=== PATIENT | female | born 1960 | race Caucasian/White ===

== ENCOUNTER 2022-01-02 01:00 | Outpatient (CLI) | payer BC, SELFPAY | END 2022-01-02 21:25 | disposition home or self-care (01) | LOC: RAD 01-21 21:25 | PROVIDERS: Visit Provider Nurse Practitioner Family | DX: E03.9 Hypothyroidism, unspecified (principal); R53.83 Other fatigue | CPT/HCPCS: 80053; 80061; 82306; 82607; 83735; 84439; 84443; 84481; 85025; 86376 ==

== ENCOUNTER 2022-02-27 10:44 | Outpatient (CLI) | payer BC, SELFPAY ==
--- NOTE | 2022-02-27 | US_ITS ---
WS: [id number] THYROID ULTRASOUND HISTORY: hypothyroidism COMPARISON: None available. Right lobe: 2.0 cm x 2.7 cm x 5.5 cm (w x ap x l). Volume: 15.5 cm3. Enlarged very heterogeneous thyroid. Increased vascularity. No discrete well-formed nodules. Lobulate d contour of the thyroid. Left lobe: 1.6 cm x 2.0 cm x 4.7 cm (w x ap x l). Volume: 8.0 cm3. Enlarged lobular heterogeneous thyroid. There are a few ill-defined nodules throughout. Only minimal hyperemia throughout the gland. Isthmus: 0.8 cm. Benign-appearing cervical chain lymph nodes. US/US thyroid [id number] IMPRESSION: Enlarged heterogeneous nodular thyroid with increased vascularity. Consistent w ith a thyroiditis.
== END 2022-02-27 10:45 | disposition home or self-care (01) ==
PROVIDERS: PCP Family Medicine; Visit Provider Nurse Practitioner Family
DX: E03.9 Hypothyroidism, unspecified (principal); E04.2 Nontoxic multinodular goiter
CPT/HCPCS: 76536

== ENCOUNTER → 2022-05-01 08:02 | Outpatient (BNVA) | payer BC, SELFPAY | PROVIDERS: PCP Nurse Practitioner Family; Visit Provider Internal Medicine | DX: E03.8 Other specified hypothyroidism (principal); E06.3 Autoimmune thyroiditis | CPT/HCPCS: 84439; 84443 ==

== ENCOUNTER → 2022-06-26 08:19 | Outpatient (BNVA) | payer BC, SELFPAY | PROVIDERS: PCP Nurse Practitioner Family; Visit Provider Internal Medicine | DX: E03.8 Other specified hypothyroidism (principal); E06.3 Autoimmune thyroiditis; E55.9 Vitamin D deficiency, unspecified | CPT/HCPCS: 84439; 84443 ==

== ENCOUNTER → 2022-07-09 09:25 | Outpatient (BNVA) | payer BC, SELFPAY | PROVIDERS: PCP Nurse Practitioner Family; Visit Provider Nurse Practitioner Family | DX: M25.562 Pain in left knee (principal); M71.22 Synovial cyst of popliteal space [Baker], left knee; S83.242A Other tear of medial meniscus, current injury, left knee, initial encounter; X58.XXXA Exposure to other specified factors, initial encounter | CPT/HCPCS: 73562 ==

== ENCOUNTER 2022-07-12 13:21 | Outpatient (CLI) | payer BC, SELFPAY ==
--- NOTE | 2022-07-12 14:15 | MR_ITS ---
WS: [id number] MRI LEFT KNEE NONCONTRAST TECHNIQUE: Axial PD, coronal PD fat sat, coronal PD, sagittal PD, and sagittal PD fat-sat images obta ined. CLINICAL INFORMATION: M25.562 - Pain in left knee COMPARISON: None. FINDINGS: Distal quadriceps and patella tendons are intact. Normal ACL and PCL. Moderate to advanced joint spac e narrowing medial and lateral joint compartments worse medial joint compartment with subchondral ed vannessa. Moderate to advanced chondromalacia. Tear involving the posterior horn medial meniscus with samra pheral extrusion of the medial meniscus. Lateral meniscus appears intact. Medial and lateral collater al ligaments appear intact. Normal popliteal fossa. Tiny popliteal cyst. Mild chondro malacia patella . Medial and lateral patellar retinacula appear intact. MR/MR knee LT wo con* [id number] IMPRESSION: 1. Normal ACL and PCL. 2. Blunting with tear of the posterior horn medial meniscus with peripheral ex trusion of the medial meniscus. 3. Moderate to advanced degenerative narrowing of the medial and lateral joint compartments. Subchondral edema. 4. Normal MCL and LCL. 5. Tiny popliteal cyst. Outbridge grading: grade IV: full-thickness cartilage loss with underlying bone reactive changes
== END 2022-07-12 13:22 | disposition home or self-care (01) ==
LOC: RAD 13:24
PROVIDERS: PCP Nurse Practitioner Family; Visit Provider Nurse Practitioner Family
DX: M25.562 Pain in left knee (principal); M71.22 Synovial cyst of popliteal space [Baker], left knee
CPT/HCPCS: 73721

== ENCOUNTER → 2022-08-28 08:42 | Outpatient (BNVA) | payer BC, SELFPAY | PROVIDERS: PCP Nurse Practitioner Family; Visit Provider Internal Medicine | DX: E03.8 Other specified hypothyroidism (principal); E06.3 Autoimmune thyroiditis; E55.9 Vitamin D deficiency, unspecified; E66.01 Morbid (severe) obesity due to excess calories; R53.83 Other fatigue | CPT/HCPCS: 84439; 84443; 84480 ==

== ENCOUNTER → 2022-11-04 08:26 | Outpatient (BNVA) | payer BC, SELFPAY | PROVIDERS: PCP Nurse Practitioner Family; Visit Provider Internal Medicine | DX: E03.8 Other specified hypothyroidism (principal); E06.3 Autoimmune thyroiditis; E55.9 Vitamin D deficiency, unspecified; E66.01 Morbid (severe) obesity due to excess calories; I10 Essential (primary) hypertension; R53.83 Other fatigue | CPT/HCPCS: 84439; 84443 ==